=== PATIENT | male | born 1940 | race Caucasian/White ===

== ENCOUNTER 2021-05-02 16:39 | Emergency (ER) | payer MEDICARE, BC ==
[2021-05-02 17:41] VITALS: BP 128/90; PULSE 98
[2021-05-02] MEDS ORDERED: Sodium Chloride 0.9% 10 ML Syringe FLUSH PRN (18:20)
--- NOTE | 2021-05-02 18:29 | EDM.PDOC ---
ED HPI GENERAL MEDICAL PROBLEM - General Chief Complaint: Respiratory Problem Stated Complaint: POSS BLOOD POISONING Time Seen by Provider: 05/02/21 17:44 Source of Information: Reports: Patient, Old Records, RN Notes Reviewed History Limitations: Reports: No Limitations - History of Present Illness INITIAL COMMENTS - FREE TEXT/NARRATIVE: Patient is a 81-year-old male who presents to the ER for evaluation of his elevated white blood count, and ongoing shortness of breath. Patient was evaluated at the walk-in clinic earlier today, and was found to have a white count that was elevated at 20,000 with 91% neutrophils on the auto differential. The patient's x-ray did not show any obvious sign of an infiltrate, so they called the patient back and told to come to the ER for further work-up to consider sepsis. Patient had an elevated temperature of 100.2 F, states he has maybe had a slightly productive cough since yesterday. The Covid screen at the walk-in clinic was negative. Patient is on oxygen, at 2 L at baseline, and is not necessarily needing an increased amount of oxygen. Primary care provider is Dr. Oconnor. Patient has had no fever, but is complaining of body aches, chills, runny nose, sore throat along with shortness of breath and wheezing. Patient does have a history of asthma. - Related Data Allergies Allergy/AdvReac Type Severity Reaction Status Date / Time No Known Allergies Allergy Verified 05/02/21 17:43 Home Meds: Home Meds Finasteride [Proscar] 5 mg PO DAILY 05/05/16 [History] Losartan [Cozaar] 100 mg PO DAILY 05/05/16 [History] Tamsulosin [Flomax] 0.4 mg PO DAILY 05/05/16 [History] Albuterol [Ventolin HFA] 2 puff INH QID 05/28/18 [History] Rosuvastatin [Crestor] 40 mg PO DAILY 04/23/20 [History] Doxycycline [Vibramycin] 100 mg PO BID 7 Days #14 tab 05/02/21 [Rx] calcitrioL [Rocaltrol] 1 tab PO ASDIRECTED 05/02/21 [History] Past Medical History Cardiovascular History: Reports: High Cholesterol, Hypertension Respiratory History: Reports: Asthma Genitourinary History: Reports: Prostate Disorder, Renal Calculus, Renal Disease, Other (See Below) Other Genitourinary History: Born with 1 kidney Musculoskeletal History: Reports: Back Pain, Chronic Endocrine/Metabolic History: Reports: Obesity/BMI 30+ - Infectious Disease History Infectious Disease History: Reports: Novel Coronavirus - Past Surgical History HEENT Surgical History: Reports: Cataract Surgery - History Comment History Comment: Covid Vaccine with booster Social & Family History - Family History Family Medical History: No Pertinent Family History Cardiac: Reports: NM - Tobacco Use Tobacco Use Status *Q: Never Tobacco User Second Hand Smoke Exposure: No - Caffeine Use Caffeine Use: Reports: Coffee Other Caffeine Use: 2-3 cups - Alcohol Use Days Per Week of Alcohol Use: 7 Number of Drinks Per Day: 1 Total Drinks Per Week: 7 - Recreational Drug Use Recreational Drug Use: No ED ROS GENERAL - Review of Systems Review Of Systems: Comprehensive ROS is negative, except as noted in HPI. ED EXAM, GENERAL - Physical Exam Exam: See Below Exam Limited By: No Limitations General Appearance: Alert, WD/WN, No Apparent Distress Respiratory/Chest: Lungs Clear, Normal Breath Sounds, No Accessory Muscle Use, Chest Non-Tender, Respiratory Distress (mild, pt does appear to have belly breathing type pattern), Decreased Breath Sounds (diffuse bilaterally) Cardiovascular: Normal Peripheral Pulses, Regular Rate, Rhythm, No Edema Peripheral Pulses: 2+: Radial (L), Radial (R) Extremities: Normal Inspection, Normal Capillary Refill Neurological: Alert, Oriented, Normal Cognition, No Motor/Sensory Deficits Psychiatric: Normal Affect, Normal Mood Skin Exam: Warm, Dry, Intact, Normal Color, No Rash Course - Vital Signs Last Recorded V/S: Last Vital Signs Temp 98.6 F 05/02/21 17:39 Pulse 98 05/02/21 17:39 Resp 20 05/02/21 17:39 BP 128/90 05/02/21 17:39 Pulse Ox 84 L 05/02/21 18:10 - Orders/Labs/Meds Orders: Active Orders 24 hr Category Date Time Status Peripheral IV Care [RC] . DIRECTED Care 05/02/21 18:21 Active BLOOD CULTURE [MREF] Stat Lab 05/02/21 18:50 Received BLOOD CULTURE [MREF] Stat Lab 05/02/21 19:02 Received Sodium Chloride 0.9% [Saline Flush] Med 05/02/21 18:20 Active 10 ml FLUSH ASDIRECTED PRN Blood Culture x2 Reflex Set [OM.PC] Stat Oth 05/02/21 18:20 Ordered Peripheral IV Insertion Adult [OM.PC] Routine Oth 05/02/21 18:20 Ordered Medication Orders Sodium Chloride (Sodium Chloride 0.9% 10 Ml Syringe) 10 ml FLUSH ASDIRECTED PRN PRN Reason: Keep Vein Open Labs: Laboratory Tests 05/02/21 05/02/21 05/02/21 Range/Units 19:02 19:02 19:02 WBC 19.39 H (4.23-9.07) K/mm3 RBC 4.49 L (4.63-6.08) M/mm3 Hgb 13.7 (13.7-17.5) gm/dl Hct 43.7 (40.1-51.0) % MCV 97.3 H (79.0-92.2) fl MCH 30.5 (25.7-32.2) pg MCHC 31.4 L (32.2-35.5) g/dl RDW Std Deviation 44.4 H (35.1-43.9) fL Plt Count 155 L D (163-337) K/mm3 MPV 11.3 (9.4-12.3) fl Neut % (Auto) 90.1 H (34.0-67.9) % Lymph % (Auto) 2.2 L (21.8-53.1) % [place] % (Auto) 7.1 (5.3-12.2) % Eos % (Auto) 0.1 L (0.8-7.0) Baso % (Auto) 0.1 (0.1-1.2) % Neut # (Auto) 17.48 H (1.78-5.38) K/mm3 Lymph # (Auto) 0.43 L (1.32-3.57) K/mm3 [place] # (Auto) 1.38 H (0.30-0.82) K/mm3 Eos # (Auto) 0.01 L (0.04-0.54) K/mm3 Baso # (Auto) 0.01 (0.01-0.08) K/mm3 Manual Slide Review Abnormal smear Sodium 143 (136-145) mEq/L Potassium 4.5 (3.5-5.1) mEq/L Chloride 105 (98-107) mEq/L Carbon Dioxide 31 (21-32) mEq/L Anion Gap 11.5 (5-15) BUN 51 H (7-18) mg/dL Creatinine 2.3 H (0.7-1.3) mg/dL Est Cr Clr Drug Dosing 26.04 mL/min Estimated GFR (MDRD) 28 (>60) mL/min BUN/Creatinine Ratio 22.2 H (14-18) Glucose 117 H (70-99) mg/dL Lactic Acid 1.1 (0.4-2.0) mmol/L Calcium 9.1 (8.5-10.1) mg/dL Total Bilirubin 0.7 (0.2-1.0) mg/dL AST 18 (15-37) U/L ALT 11 L (16-63) U/L Alkaline Phosphatase 50 (46-116) U/L C-Reactive Protein 11.3 H* (<1.0) mg/dL Total Protein 8.0 (6.4-8.2) g/dl Albumin 3.7 (3.4-5.0) g/dl Globulin 4.3 gm/dL Albumin/Globulin Ratio 0.9 L (1-2) Meds: Medications Generic Name Dose Route Start Last Admin Trade Name Freq PRN Reason Stop Dose Admin Sodium Chloride 10 ml 05/02/21 18:20 Sodium Chloride 0.9% 10 Ml Syringe FLUSH ASDIRECTED PRN Keep Vein Open Discontinued Medications Generic Name Dose Route Start Last Admin Trade Name Freq PRN Reason Stop Dose Admin Ceftriaxone Sodium 2 gm/ 100 mls @ 200 mls/hr 05/02/21 19:52 Sodium Chloride IV 05/02/21 20:21 ONETIME ONE - Re-Assessments/Exams Free Text/Narrative Re-Assessment/Exam: 05/02/21 18:28 Patient presents to the ER for evaluation of his acute shortness of breath, and elevated white count. We will go ahead and get blood cultures and a lactic acid for ongoing management we will repeat a CBC and a CMP as well. Likely that the patient might either have an early pneumonia versus COPD exacerbation. Patient notes that he does only have 1 kidney, so is wary about being put on any antibiotics. 05/02/21 20:04 Laboratory evaluation has been completed, patient's white count is elevated at 19.39 with 90% neutrophils on the auto differential, metabolic panel is impressive for an elevated BUN of 51 and a creatinine elevated at 2.3 and a GFR low at 28. This is a slight change in baseline for him, BUN seems to run in the 40s, creatinines in the high ones, and GFR in the mid 30s. Patient CRP is elevated 11.3 as well. We will go ahead and get 2 g Rocephin for suspected pneumonia versus acute COPD exacerbation, and treat him with outpatient doxycycline. Patient is amenable to this plan he has oxygen at home, and will continue to wear this at 2 L continuously until he is feeling a little bit better. States he knows how to wean himself off as needed. Departure - Departure Time of Disposition: 20:05 Disposition: Home, Self-Care 01 Condition: Good Clinical Impression: Pneumonia Qualifiers: Pneumonia type: due to unspecified organism Laterality: left Lung location: lower lobe of lung Qualified Code(s): J18.9 - Pneumonia, unspecified organism - Discharge Information *PRESCRIPTION DRUG MONITORING PROGRAM REVIEWED*: No *COPY OF PRESCRIPTION DRUG MONITORING REPORT IN PATIENT JOSELO: No Prescriptions: Doxycycline [Vibramycin] 100 mg PO BID 7 Days #14 tab Instructions: Community-Acquired Pneumonia, Adult, [id number] Referrals: Daryn Oconnor MD [Primary Care Provider] - Forms: ED Department Discharge Additional Instructions: You were evaluated in the ER today for your acute respiratory illness. Labs were taken at today's visit, your white count was elevated, suggestive of infection. Due to your report of productive cough, and fever we will treat you for early pneumonia at this time. You were given 2 g Rocephin in the ER for ongoing management and have it placed on oral doxycycline, it will be 1 tablet 2 times a day for the next 7 days. This medication was electronically sent to the [facility] located near [facility]. Blood cultures were obtained at today's visit, these sometimes can take 24 to 48 hours to result. You will be called and made notified if you should need further management above the outpatient management that we discussed at today's visit. I would strongly recommend that you increase your nebulized medications to at least 3 or 4 times a day when you are feeling the most ill, and then you can taper back to your scheduled dosing recommended by your regular care provider. If you are not feeling much better by Wednesday, I would strongly suggest that you seek care by another healthcare professional for ongoing management. Do not hesitate to return to the ER at any time if symptoms change or worsen. Sepsis Event Note (ED) - Focused Exam Vital Signs: Vital Signs Temp Pulse Resp BP Pulse Ox Pulse Ox 05/02/21 18:10 84 L 05/02/21 17:39 98.6 F 98 20 128/90 84 L - My Orders Last 24 Hours: My Active Orders 05/02/21 18:20 Sodium Chloride 0.9% [Saline Flush] 10 ml FLUSH ASDIRECTED PRN Blood Culture x2 Reflex Set [OM.PC] Stat Peripheral IV Insertion Adult [OM.PC] Routine 05/02/21 18:21 Peripheral IV Care [RC] . DIRECTED 05/02/21 18:50 BLOOD CULTURE [MREF] Stat 05/02/21 19:02 BLOOD CULTURE [MREF] Stat - Assessment/Plan Last 24 Hours: My Active Orders 05/02/21 18:20 Sodium Chloride 0.9% [Saline Flush] 10 ml FLUSH ASDIRECTED PRN Blood Culture x2 Reflex Set [OM.PC] Stat Peripheral IV Insertion Adult [OM.PC] Routine 05/02/21 18:21 Peripheral IV Care [RC] . DIRECTED 05/02/21 18:50 BLOOD CULTURE [MREF] Stat 05/02/21 19:02 BLOOD CULTURE [MREF] Stat
[2021-05-02] MEDS ORDERED: cefTRIAXone 2 GM in Sodium Chloride 0.9% 100 ML IV ONE (19:52)
== END 2021-05-02 20:50 | disposition home or self-care (01) ==
LOC: JD.ED 16:39
DX: J18.9 Pneumonia, unspecified organism (principal); E78.00 Pure hypercholesterolemia, unspecified; I10 Essential (primary) hypertension; E66.9 Obesity, unspecified; Z68.30 Body mass index [BMI] 30.0-30.9, adult; Z86.16 Personal history of COVID-19
CPT/HCPCS: 36415; 80053; 83605; 85025; 86140; 87040; 96365; 99284; J0696

== ENCOUNTER 2021-10-13 10:31 | Day surgery (SDC) | payer MEDICARE, BC ==
[~2021-10-13 10:31] MED LIST: Lactated Ringers 1,000 ML IV SCH; Lidocaine 1%/Sod Bicarbonate in NS 8.4% 1 ML Syringe IDERM PRN; Sodium Chloride 0.9% 10 ML Syringe FLUSH PRN; Sodium Chloride 0.9% 10 ML Syringe FLUSH SCH
[2021-10-13] MEDS ORDERED: Albuterol 0.083% 2.5 MG/3 ML Neb Soln NEB ONE (11:09)
[2021-10-13] MEDS ORDERED: Sodium Chloride 0.9% 1,000 ML IV ONE (11:27)
[2021-10-13] MEDS ORDERED: Propofol 200 MG/20 ML SDV ONE ×2 (12:15→12:16)
[2021-10-13] MEDS ORDERED: Lidocaine 1% 4 ML ONE (12:16)
[2021-10-13] MEDS ORDERED: fentaNYL 100 MCG/2 ML SDV ONE (12:17)
[2021-10-13 13:53] VITALS: BP 153/89; PULSE 63
== END 2021-10-13 13:49 | disposition home or self-care (01) ==
LOC: JD.SDS 10:31
PROVIDERS: ATTEND Surgery
DX: Z12.11 Encounter for screening for malignant neoplasm of colon (principal); K57.30 Diverticulosis of large intestine without perforation or abscess without bleeding; J45.909 Unspecified asthma, uncomplicated; I12.9 Hypertensive chronic kidney disease with stage 1 through stage 4 chronic kidney disease, or unspecified chronic kidney disease; N18.30 Chronic kidney disease, stage 3 unspecified; E78.5 Hyperlipidemia, unspecified; Z98.890 Other specified postprocedural states; Z79.899 Other long term (current) drug therapy
CPT/HCPCS: 45380; J2704; J3010; J7030; 00812; 99100

== ENCOUNTER 2024-08-10 14:04 | Day surgery (SDC) | payer MEDICARE, BC ==
[2024-08-10] MEDS: Phenylephrine 2.5% Ophth Soln 2 ML Bot EYELF SCH (11:55)
[2024-08-10] MEDS: Brimonidine 0.2% Ophth Soln 5 ML Bottle EYELF SCH (11:56)
[2024-08-10] MEDS: Polymyxin B/Trimethoprim 10 ML Bottle EYELF SCH (11:56)
[2024-08-10] MEDS: Pilocarpine 4% Ophth Soln 15 ML Bot EYELF SCH (11:56)
[2024-08-10] MEDS: Lidocaine 1% PF 2 ML SDV INJECT SCH (11:56)
[2024-08-10] MEDS: Cefuroxime 10 MG/ML SYRINGE EYELF SCH (11:56)
[2024-08-10] MEDS: Tetracaine HCl/PF 0.5% 4 ML Bottle EYEBOTH SCH (11:56)
[2024-08-10] MEDS: Tropicamide 1% Ophth Soln 3 ML Bottle EYELF SCH (14:58)
[2024-08-10 16:33] VITALS: BP 151/96; PULSE 70
== END 2024-08-10 16:29 | disposition home or self-care (01) ==
LOC: JD.SDS 14:04
PROVIDERS: ATTEND Ophthalmology
DX: H25.812 Combined forms of age-related cataract, left eye (principal); H21.81 Floppy iris syndrome; H21.42 Pupillary membranes, left eye; I10 Essential (primary) hypertension; J45.909 Unspecified asthma, uncomplicated; E78.2 Mixed hyperlipidemia; H11.823 Conjunctivochalasis, bilateral; H11.153 Pinguecula, bilateral; H18.513 Endothelial corneal dystrophy, bilateral; H35.373 Puckering of macula, bilateral; Z79.899 Other long term (current) drug therapy
CPT/HCPCS: A9270-GY; J0697; J3490

== ENCOUNTER 2025-04-29 12:22 | Emergency (ER) | payer MEDICARE, BC ==
[2025-04-29] MEDS ORDERED: Sodium Chloride 0.9% 10 ML Syringe FLUSH PRN (13:17)
[2025-04-29 13:26] LABS: BASOPHILS ABSOLUTE AUTO 0.0 K/mm3 (0.0-0.2); BASOPHILS PERCENT AUTO 0.4 % (0.0-1.0); EOSINOPHILS ABSOLUTE AUTO 0.1 K/mm3 (0.0-0.4); EOSINOPHILS PERCENT AUTO 1.5 % (0.0-6.0); IMMATURE GRAN ABSOLUTE AUTO 0.05 K/mm3 (0.00-0.05); IMMATURE GRAN PERCENT AUTO 0.5 % (0.0-0.4); LYMPHOCYTES ABSOLUTE AUTO 0.7 K/mm3 (1.0-4.8); LYMPHOCYTES PERCENT AUTO 7.2 % (24.0-44.0); MEAN PLATELET VOLUME 11.2 fl (9.4-12.4); MONOCYTES ABSOLUTE AUTO 0.7 K/mm3 (0.0-0.8); MONOCYTES PERCENT AUTO 7.1 % (0.0-8.0); NEUTROPHILS ABSOLUTE AUTO 7.6 K/mm3 (1.8-7.7); NEUTROPHILS PERCENT AUTO 83.3 % (41.0-71.0); NRBC ABSOLUTE 0.00 (0.00-0.02); NRBC PERCENT 0.0 % (0.0-0.2); PLATELET COUNT,PLT 143 K/mm3 (150-400); RED BLOOD CELL COUNT 5.20 M/mm3 (4.52-5.90); WHITE BLOOD CELL COUNT,WBC 9.18 K/mm3 (3.9-11.3)
[2025-04-29] MEDS: Ondansetron 4 MG/2 ML SDV IVPUSH ONE (13:35)
[2025-04-29 13:36] LABS: A/G RATIO 1.0 (1-2); ALANINE AMINOTRANSFERASE,ALT 10.0 U/L (16-63); ASPARTATE AMNIOTRANSFERASE,AST 16.0 U/L (15-37); BILIRUBIN TOTAL 0.6 mg/dL (0.2-1.0); BLOOD UREA NITROGEN,BUN 38.0 mg/dL (7-18); CARBON DIOXIDE,CO2 32.0 mEq/L (21-32); CHLORIDE,CL 106.0 mEq/L (98-107); CREATININE 2.0 mg/dL (0.7-1.3); EST CRCL DRUG DOSING (CG) 27.99 mL/min; ESTIMATED GFR 33.0 mL/min (>60); GLUCOSE RANDOM 117.0 mg/dL (70-99); POTASSIUM,K 4.4 mEq/L (3.5-5.1); PROTEIN TOTAL,TP 7.4 g/dl (6.4-8.2); SODIUM,NA 145.0 mEq/L (136-145)
[2025-04-29] MEDS: Levofloxacin/Dextrose 5%-Water 500 MG in Premix Bag 1 BAG IV ONE (15:28)
[2025-04-29 16:38] VITALS: BP 159/82; PULSE 76
== END 2025-04-29 16:46 | disposition home or self-care (01) ==
LOC: JD.ED 12:22
DX: R19.7 Diarrhea, unspecified (principal); R11.2 Nausea with vomiting, unspecified; I10 Essential (primary) hypertension; E78.00 Pure hypercholesterolemia, unspecified; Z79.899 Other long term (current) drug therapy; Z79.82 Long term (current) use of aspirin; Z86.16 Personal history of COVID-19
CPT/HCPCS: 36415; 74019; 80053; 85025; 86140; 96361; 96365; 96375; 99284; J1956; J2405; J7030